=== PATIENT | male | born 1985 | race Two or more races ===

== ENCOUNTER 2016-07-30 16:01 | Inpatient (IN) | payer MEDICAID ==
[~2016-07-30] VITALS: Ht 165.1 cm; Wt 63.5 kg
[2016-07-30] MEDS ORDERED: Morphine Sulfate 4mg/ml Inj IVP ONE ×2 (16:30→19:15)
[2016-07-30 16:35] LABS: MEAN CORPUSCULAR HEMOGLOBIN 30.3 PG (27.0-31.0); MEAN CORPUSCULAR HGB CONC 33.2 G/DL (32.0-36.0); MEAN CORPUSCULAR VOLUME 91 FL (80-99); MEAN PLATELET VOLUME 8.8 FL (6.5-10.1); PLATELET COUNT 251 K/UL (150-450); RED BLOOD COUNT 4.87 M/UL (4.70-6.10); WHITE BLOOD COUNT 20.5 K/UL (4.8-10.8)
[2016-07-30 16:50] LABS: ALANINE AMINOTRANSFERASE 118 U/L (3-41); ALBUMIN/GLOBULIN RATIO 1.3 (1.0-2.7); ANION GAP 17 (5-15); ASPARTATE AMINO TRANSFERASE 57 U/L (5-40); CARBON DIOXIDE 25 mEQ/L (20-30); CHLORIDE 99 mEQ/L (98-107); CREATININE 0.8 mg/dL (0.7-1.2); GLOMERULAR FILTRATION RATE > 60 mL/min (>60); HEMOLYSIS 5; SODIUM 141 mEQ/L (135-145); TOTAL PROTEIN 7.1 g/dL (6.6-8.7)
[2016-07-30 17:44] LABS: LIPASE 4485 U/L (< 60)
[2016-07-30 18:13] VITALS: BP 110/74
[2016-07-30 18:51] LABS: BAND NEUTROPHILS % (MANUAL) 2 % (0-8); BASOPHILS % (MANUAL) 0 % (0-2); EOSINOPHILS % (MANUAL) 0 % (0-3); LYMPHOCYTES % (MANUAL) 8 % (20-45); NEUTROPHILS % (MANUAL) 88 % (45-75); PLATELET ESTIMATE ADEQUATE; PLATELET MORPHOLOGY NORMAL; TOTAL CELLS COUNTED 100
--- NOTE | 2016-07-30 20:12 | Emergency Room Report ---
History of Present Illness General Chief Complaint: Abdominal Pain Source: Patient Present Illness HPI 30-year-old male presents ED for abdominal pain. Pain started today while at work. Pain was sharp. mid-abdomen. 10 out of 10. Nonradiating. Was given morphine by EMS without relief. Notes nausea and vomiting. Denies fevers or chills. Denies chest pain or shortness of breath. No other aggravating or relieving factors. Denies any other associated symptom Allergies: Coded Allergies: No Known Allergies (Unverified , 07/30/16) Patient History Past Medical History: none Past Surgical History: none Pertinent Family History: none Social History: Denies: alcohol use, drug use, smoking Immunizations: UTD Reviewed Nursing Documentation: PMH: Agreed, PSxH: Agreed Nursing Documentation-PMH Past Medical History: No History, Except For Review of Systems All Other Systems: negative except mentioned in HPI Physical Exam Vital Signs Date Time Temp Pulse Resp B/P Pulse Ox O2 Delivery O2 Flow Rate FiO2 07/30/16 15:55 98.1 62 16 117/73 97 Room Air Sp02 EP Interpretation: reviewed, normal General Appearance: mild distress, thin Head: normocephalic Eyes: bilateral eye PERRL, bilateral eye normal inspection ENT: normal ENT inspection Neck: normal inspection Respiratory: chest non-tender, lungs clear, normal breath sounds, speaking full sentences Cardiovascular #1: regular rate, rhythm, no edema Gastrointestinal: normal bowel sounds, soft, guarding, tenderness Rectal: deferred Genitourinary: no CVA tenderness Musculoskeletal: normal inspection Neurologic: alert, oriented x3, responsive, motor strength/tone normal, sensory intact, speech normal Psychiatric: normal inspection Skin: normal inspection Lymphatic: normal inspection Medical Decision Making Diagnostic Impression: Primary Impression: Pancreatitis Qualified Codes: K85.90 - Acute pancreatitis without necrosis or infection, unspecified ER Course Hospital Course 30-year-old male presents to ED with abdominal pain Differential diagnoses include: BPH, cystitis, pyelonephritis, kidney stone Clinical course Patient placed on stretcher. traffic monitor specialist. After initial history and physical I ordered labs, IV fluids, UA, pain medication and CT scan Labs - no leukocytosis, Hb/Hct stable. potassium 3.0 Lipase > 4000, AST/ALT elevated. CT abdomen and pelvis - pancreatitis with peripancreatic fluid Potassium repleted. Case discussed with Dr. Fagan and he agreed to accept the patient to his service for further care and support I feel this is a highly complex case requiring extensive working including EKG/ Rhythm strip, Xray/CT/US, Blood/urine lab work, repeat exams while in ED, and administration of strong opiates/narcotics for pain control, admission to hospital or close patient follow up. Diagnosis - acute pancreatitis Patient admitted to floor in serious condition Labs Test 07/30/16 16:25 White Blood Count 20.5 K/UL (4.8-10.8) Red Blood Count 4.87 M/UL (4.70-6.10) Hemoglobin 14.7 G/DL (14.2-18.0) Hematocrit 44.3 % (42.0-52.0) Mean Corpuscular Volume 91 FL (80-99) Mean Corpuscular Hemoglobin 30.3 PG (27.0-31.0) Mean Corpuscular Hemoglobin Concent 33.2 G/DL (32.0-36.0) Red Cell Distribution Width 13.0 % (11.6-14.8) Platelet Count 251 K/UL (150-450) Mean Platelet Volume 8.8 FL (6.5-10.1) Neutrophils (%) (Auto) % (45.0-75.0) Lymphocytes (%) (Auto) % (20.0-45.0) Monocytes (%) (Auto) % (1.0-10.0) Eosinophils (%) (Auto) % (0.0-3.0) Basophils (%) (Auto) % (0.0-2.0) Differential Total Cells Counted 100 Neutrophils % (Manual) 88 % (45-75) Lymphocytes % (Manual) 8 % (20-45) Monocytes % (Manual) 2 % (1-10) Eosinophils % (Manual) 0 % (0-3) Basophils % (Manual) 0 % (0-2) Band Neutrophils 2 % (0-8) Platelet Estimate Adequate Platelet Morphology Normal Red Blood Cell Morphology Normal Sodium Level 141 mEQ/L (135-145) Potassium Level 3.0 mEQ/L (3.4-4.9) Chloride Level 99 mEQ/L (98-107) Carbon Dioxide Level 25 mEQ/L (20-30) Anion Gap 17 (5-15) Blood Urea Nitrogen 9 mg/dL (7-23) Creatinine 0.8 mg/dL (0.7-1.2) Estimat Glomerular Filtration Rate > 60 mL/min (>60) Glucose Level 137 mg/dL (74-106) Calcium Level 9.0 mg/dL (8.6-10.2) Total Bilirubin 0.8 mg/dL (0.0-1.2) Aspartate Amino Transf (AST/SGOT) 57 U/L (5-40) Alanine Aminotransferase (ALT/SGPT) 118 U/L (3-41) Alkaline Phosphatase 139 U/L (40-129) Total Protein 7.1 g/dL (6.6-8.7) Albumin 4.1 g/dL (3.5-5.2) Globulin 3.0 g/dL Albumin/Globulin Ratio 1.3 (1.0-2.7) Lipase 4485 U/L (< 60) CT/MRI/US Diagnostic Results CT/MRI/US Diagnostic Results : Imaging Test Ordered: CT A/P Impression peripancreatic fluid c/w pancreatitis. Last Vital Signs Date Time Temp Pulse Resp B/P Pulse Ox O2 Delivery O2 Flow Rate FiO2 07/30/16 18:13 94 18 110/74 99 Room Air 07/30/16 17:27 98.1 Status: improved Disposition: ADMITTED INPATIENT Condition: Serious Referrals: NOT CHOSEN ROYER/,REFERRING (PCP) JAS CARRINGTON M.D. Jul 30, 2016 20:12
[2016-07-30] MEDS ORDERED: NKM (20:16)
[2016-07-30 20:17] VITALS: BP 114/72
[2016-07-30] MEDS ORDERED: LORazepam Inj 2mg/ml 1ml IV PRN (20:30)
[2016-07-30] MEDS ORDERED: HYDROmorphone 1mg/ml Carpuject IVP PRN (20:30)
[2016-07-30 21:00] VITALS: BP 118/67
[2016-07-30] MEDS ORDERED: Piperacillin/Tazobactam 3.375 GM in D5W 110 ML IVPB SCH (21:00)
[2016-07-30 21:05] LABS: APPEARANCE,URINE CLEAR; KETONES,URINE NEGATIVE (NEGATIVE); LEUKOCYTE ESTERASE ,URINE NEGATIVE (NEGATIVE); NITRITE,URINE NEGATIVE (NEGATIVE); PH,URINE 5 (4.5-8.0); PROTEIN,URINE NEGATIVE (NEGATIVE); UROBILINOGEN,URINE NORMAL MG/DL (0.0-1.0)
[2016-07-30] MEDS: Piperacillin/Tazobactam 3.375 GM in D5W 110 ML IVPB SCH (22:00)
[2016-07-31] VITALS: BP 126/80
[2016-07-31 04:00] VITALS: BP 129/72
[2016-07-31] MEDS: Piperacillin/Tazobactam 3.375 GM in D5W 110 ML IVPB SCH ×3 (06:25→21:17)
[2016-07-31 08:23] LABS: BASOPHILS % (AUTO) 0.5 % (0.0-2.0); EOSINOPHILS % (AUTO) 0.2 % (0.0-3.0); LYMPHOCYTES % (AUTO) 8.5 % (20.0-45.0); MEAN CORPUSCULAR HEMOGLOBIN 30.3 PG (27.0-31.0); MEAN CORPUSCULAR VOLUME 92 FL (80-99); MEAN PLATELET VOLUME 8.6 FL (6.5-10.1); MONOCYTES % (AUTO) 6.1 % (1.0-10.0); NEUTROPHILS % (AUTO) 84.7 % (45.0-75.0); PLATELET COUNT 279 K/UL (150-450); RED BLOOD COUNT 4.94 M/UL (4.70-6.10); WHITE BLOOD COUNT 12.7 K/UL (4.8-10.8)
[2016-07-31 08:38] LABS: ALANINE AMINOTRANSFERASE 87 U/L (3-41); ALBUMIN/GLOBULIN RATIO 1.4 (1.0-2.7); ANION GAP 12 (5-15); ASPARTATE AMINO TRANSFERASE 28 U/L (5-40); CALCIUM 8.7 mg/dL (8.6-10.2); CARBON DIOXIDE 29 mEQ/L (20-30); CHLORIDE 99 mEQ/L (98-107); CREATININE 0.9 mg/dL (0.7-1.2); GLOMERULAR FILTRATION RATE > 60 mL/min (>60); HEMOLYSIS 9; POTASSIUM 4.2 mEQ/L (3.4-4.9); SODIUM 140 mEQ/L (135-145); TOTAL PROTEIN 6.4 g/dL (6.6-8.7)
[2016-07-31 08:41] VITALS: BP 122/74
--- NOTE | 2016-07-31 08:42 | Diagnostic Imaging Report ---
Clinical Indication: Abdominal pain, Nausea, pancreatitis Technique: Patient given oral contrast immediately prior to scanning. IV administration nonionic contrast. Venous phase spiral acquisition obtained through the abdomen and pelvis. Multiplanar reconstructions were generated. Total dose length product 65 mGycm. CTDIvol(s) 12 mGy. Dose reduction achieved using automated exposure control Comparison: None Findings: The pancreas is diffusely mildly enlarged. It enhances normally, however. There is extensive peripancreatic edema which extends cephalad into the lesser sac, and caudad along the mesenteric root. There is also a small amount of free intraperitoneal fluid around the dome of the liver, in the pelvis, and in the right paracolic gutter.. No discrete loculated fluid collections are demonstrated. No gallstones or biliary ductal dilatation. The pancreatic duct is nondilated. The liver, spleen, adrenals, kidneys are all unremarkable. No pelvic mass or adenopathy. There are equivocally descending colonic diverticula. The appendix is only equivocally demonstrated, there are no findings to suggest acute appendicitis. There are nondilated small bowel loops which nonetheless demonstrate fecalization of the contents indicating stasis. No free intraperitoneal air. There are bilateral scrotal hydroceles. The distal esophagus is unremarkable. The stomach is distended with contrast. The included lung bases demonstrate a calcified granuloma in the posteromedial right lower lobe. Otherwise clear. The bones are unremarkable. Impression: Minimal pancreatic swelling, fairly abundant peripancreatic edema/phlegmon and free intraperitoneal fluid, consistent with acute nonnecrotizing pancreatitis. No evidence of pseudocyst Negative for radiopaque gallstones No evidence of small bowel distention, but there is equalization of small bowel contents which may indicate stasis, nonspecific, possibly ileus secondary to the above Small bilateral scrotal hydroceles incidentally noted Posteromedial right lung calcified granuloma Equivocal small colonic diverticula This agrees with the preliminary interpretation provided overnight by Dr. Taylor The CT scanner at [facility] is accredited by the [employer] and the scans are performed using protocols designed to limit radiation exposure to as low as reasonably achievable to attain images of sufficient resolution adequate for diagnostic evaluation.
[2016-07-31 08:54] LABS: LIPASE 646 U/L (< 60)
[2016-07-31 09:04] LABS: BILIRUBIN,DIRECT 0.3 mg/dL (0.1-0.3)
[2016-07-31] MEDS: Pantoprazole Inj IVP SCH (09:42)
[2016-07-31] MEDS: Heparin 5000 units/ml inj SUBQ SCH ×2 (09:44→21:17)
--- NOTE | 2016-07-31 11:08 | History and Physical Report ---
DATE OF ADMISSION: 07/30/2016 CHIEF COMPLAINT: Pancreatitis. HISTORY OF PRESENT ILLNESS: The patient is a 30-year-old male. He has prior history of pancreatitis. He has had approximately five episodes. He drinks occasionally. There is no history of gall stones. On evaluation in the emergency room, the patient had severe abdominal pain and elevated lipase. A CT scan of the abdomen was otherwise unremarkable. The patient is now admitted. PAST MEDICAL HISTORY: As above. PAST SURGICAL HISTORY: None. CURRENT MEDICATIONS: None. SOCIAL HISTORY: Negative for drugs and smoking. The patient drinks one to two beers a week. FAMILY HISTORY: None. PHYSICAL EXAMINATION: VITAL SIGNS: Temperature 97 degrees, pulse 72, respirations 18, and blood pressure 129/72. GENERAL: The patient is no apparent distress. HEART: Regular. LUNGS: Clear. ABDOMEN: Soft and diffusely tender with some guarding. EXTREMITIES: He has no clubbing or cyanosis. LABORATORY DATA: UA clear. Sodium 141 and potassium 3. AST 57, ALT is 118, and alkaline phosphatase 139. Lipase was 4400. White count 70676. ASSESSMENT: This is a pleasant male admitted with pancreatitis suspect secondary to alcohol use. PLAN: IV pain medications. NPO. IV fluids. Manohar Hoffmann M.D. DR: Elisabet JOB#: [id number] CC:
[2016-07-31 12:32] VITALS: BP 121/78
[2016-07-31] MEDS ORDERED: Metoclopramide 10mg/2ml Inj IVP PRN (14:15)
[2016-07-31 16:35] VITALS: BP 126/63
[2016-07-31 20:00] VITALS: BP 129/77
[2016-08-01] VITALS: BP 120/78
[2016-08-01 04:00] VITALS: BP 113/88
[2016-08-01] MEDS: Piperacillin/Tazobactam 3.375 GM in D5W 110 ML IVPB SCH ×3 (06:07→21:42)
[2016-08-01 07:59] VITALS: BP 129/73
[2016-08-01 08:02] LABS: EOSINOPHILS % (AUTO) 3.2 % (0.0-3.0); LYMPHOCYTES % (AUTO) 9.5 % (20.0-45.0); MEAN CORPUSCULAR HEMOGLOBIN 30.5 PG (27.0-31.0); MEAN CORPUSCULAR HGB CONC 33.1 G/DL (32.0-36.0); MEAN CORPUSCULAR VOLUME 92 FL (80-99); MEAN PLATELET VOLUME 8.3 FL (6.5-10.1); MONOCYTES % (AUTO) 8.3 % (1.0-10.0); PLATELET COUNT 253 K/UL (150-450); RED BLOOD COUNT 4.56 M/UL (4.70-6.10); RED CELL DISTRIBUTION WIDTH 12.8 % (11.6-14.8); WHITE BLOOD COUNT 10.1 K/UL (4.8-10.8)
[2016-08-01] MEDS: Pantoprazole Inj IVP SCH (08:07)
[2016-08-01 08:14] LABS: ALANINE AMINOTRANSFERASE 57 U/L (3-41); ALBUMIN/GLOBULIN RATIO 1.1 (1.0-2.7); ANION GAP 14 (5-15); ASPARTATE AMINO TRANSFERASE 21 U/L (5-40); CALCIUM 8.6 mg/dL (8.6-10.2); CARBON DIOXIDE 27 mEQ/L (20-30); CHLORIDE 99 mEQ/L (98-107); CREATININE 0.9 mg/dL (0.7-1.2); GLOMERULAR FILTRATION RATE > 60 mL/min (>60); HEMOLYSIS 13; LIPASE 171 U/L (< 60); SODIUM 140 mEQ/L (135-145)
[2016-08-01] MEDS: Heparin 5000 units/ml inj SUBQ SCH ×2 (08:14→21:00)
--- NOTE | 2016-08-01 08:32 | General Progress Note ---
Assessment/Plan Problem List: (1) Pancreatitis ICD Codes: K85.90 - Acute pancreatitis without necrosis or infection, unspecified SNOMED: 33162615 Qualifiers: Qualified Codes: K85.90 - Acute pancreatitis without necrosis or infection, unspecified Status: stable Assessment/Plan cont npo ivf pain rx po trial tomorrow Subjective ROS Limited/Unobtainable: No Constitutional: Reports: no symptoms HEENT: Reports: no symptoms Cardiovascular: Reports: no symptoms Respiratory: Reports: no symptoms Gastrointestinal/Abdominal: Reports: abdominal pain Genitourinary: Reports: no symptoms Neurologic/Psychiatric: Reports: no symptoms Endocrine: Reports: no symptoms Hematologic/Lymphatic: Reports: no symptoms Allergies: Coded Allergies: No Known Allergies (Unverified , 07/30/16) All Systems: reviewed and negative except above Subjective decreased abd pain. still npo. labs pending Objective Last 24 Hour Vital Signs Date Time Temp Pulse Resp B/P Pulse Ox O2 Delivery O2 Flow Rate FiO2 08/01/16 07:59 97.7 78 21 129/73 97 Room Air 08/01/16 04:00 97.2 93 20 113/88 93 Room Air 08/01/16 00:00 87 20 120/78 94 Room Air 07/31/16 20:00 99.3 80 18 129/77 95 Room Air 07/31/16 18:56 98.1 07/31/16 16:35 98.1 86 15 126/63 97 Room Air 07/31/16 12:32 97.5 70 16 121/78 97 Room Air 07/31/16 08:41 97.9 74 14 122/74 96 Room Air Intake and Output 07/31/16 08/01/16 19:00 07:00 Intake Total 792.5 ml 600 ml Output Total 1350 ml Balance -557.5 ml 600 ml IV Total 792.5 ml 600 ml Output Urine Total 1350 ml Laboratory Tests 08/01/16 07:30: White Blood Count 10.1, Red Blood Count 4.56L, Hemoglobin 13.9L, Hematocrit 41.9L, Mean Corpuscular Volume 92, Mean Corpuscular Hemoglobin 30.5, Mean Corpuscular Hemoglobin Concent 33.1, Red Cell Distribution Width 12.8, Platelet Count 253, Mean Platelet Volume 8.3, Neutrophils (%) (Auto) 78.0H, Lymphocytes ( %) (Auto) 9.5L, Monocytes (%) (Auto) 8.3, Eosinophils (%) (Auto) 3.2H, Basophils (%) (Auto) 1.0, Sodium Level [Pending], Potassium Level [Pending], Chloride Level [Pending], Carbon Dioxide Level [Pending], Blood Urea Nitrogen [ Pending], Creatinine [Pending], Estimat Glomerular Filtration Rate [Pending], Glucose Level [Pending], Calcium Level [Pending], Total Bilirubin [Pending], Aspartate Amino Transf (AST/SGOT) [Pending], Alanine Aminotransferase (ALT/SGPT ) [Pending], Alkaline Phosphatase [Pending], Total Protein [Pending], Albumin [ Pending], Globulin [Pending], Lipase [Pending] Height (Feet): 5 Height (Inches): 5.00 Weight (Pounds): 140 General Appearance: WD/WN, alert Neck: supple Cardiovascular: normal rate Respiratory/Chest: lungs clear Abdomen: normal bowel sounds, soft, no organomegaly, distended, guarding Edema: no edema noted Arm (L), no edema noted Arm (R), no edema noted Leg (L), no edema noted Leg (R), no edema noted Pedal (L), no edema noted Pedal (R), no edema noted Generalized MARYAM RODRIGUEZ Aug 01, 2016 08:32
[2016-08-01 08:55] LABS: BILIRUBIN,DIRECT 0.2 mg/dL (0.1-0.3)
[2016-08-01 11:51] VITALS: BP 117/73
[2016-08-01 15:42] VITALS: BP 123/74
[2016-08-02] VITALS: BP 115/74
[2016-08-02 04:00] VITALS: BP 123/78
[2016-08-02] MEDS: Piperacillin/Tazobactam 3.375 GM in D5W 110 ML IVPB SCH ×3 (05:14→21:48)
[2016-08-02 07:03] LABS: ALANINE AMINOTRANSFERASE 42 U/L (3-41); ANION GAP 10 (5-15); ASPARTATE AMINO TRANSFERASE 16 U/L (5-40); CALCIUM 8.6 mg/dL (8.6-10.2); CARBON DIOXIDE 29 mEQ/L (20-30); CHLORIDE 101 mEQ/L (98-107); CREATININE 0.9 mg/dL (0.7-1.2); GLOMERULAR FILTRATION RATE > 60 mL/min (>60); HEMOLYSIS 9; LIPASE 129 U/L (< 60); POTASSIUM 3.9 mEQ/L (3.4-4.9); SODIUM 140 mEQ/L (135-145); TOTAL PROTEIN 5.9 g/dL (6.6-8.7)
[2016-08-02 07:25] LABS: BILIRUBIN,DIRECT 0.2 mg/dL (0.1-0.3)
[2016-08-02 08:00] VITALS: BP 122/71
[2016-08-02] MEDS: Pantoprazole Inj IVP SCH (10:30)
[2016-08-02] MEDS: Heparin 5000 units/ml inj SUBQ SCH ×2 (10:42→21:49)
[2016-08-02 12:00] VITALS: BP 125/85
--- NOTE | 2016-08-02 14:00 | General Progress Note ---
Assessment/Plan Problem List: (1) Pancreatitis ICD Codes: K85.90 - Acute pancreatitis without necrosis or infection, unspecified SNOMED: [id number] Qualifiers: Qualified Codes: K85.90 - Acute pancreatitis without necrosis or infection, unspecified Assessment/Plan po trial ivf pain rx dc tomorrow if stable Subjective ROS Limited/Unobtainable: No Constitutional: Reports: malaise, weakness HEENT: Reports: no symptoms Cardiovascular: Reports: no symptoms Respiratory: Reports: no symptoms Gastrointestinal/Abdominal: Reports: abdominal pain Genitourinary: Reports: no symptoms Neurologic/Psychiatric: Reports: no symptoms Endocrine: Reports: no symptoms Hematologic/Lymphatic: Reports: no symptoms Allergies: Coded Allergies: No Known Allergies (Unverified , 07/30/16) All Systems: reviewed and negative except above Subjective decreased abd pain. still npo. labs pending Objective Last 24 Hour Vital Signs Date Time Temp Pulse Resp B/P Pulse Ox O2 Delivery O2 Flow Rate FiO2 08/02/16 08:00 97.4 77 18 122/71 96 Room Air 08/02/16 04:00 98.3 78 19 123/78 95 Room Air 08/02/16 00:00 98.1 77 19 115/74 95 Room Air 08/01/16 15:42 99.7 74 21 123/74 97 Room Air Intake and Output 08/01/16 08/02/16 19:00 07:00 Intake Total 1510 ml 1200 ml Output Total 450 ml Balance 1060 ml 1200 ml IV Total 1510 ml 1200 ml Output Urine Total 450 ml # Voids 2 Laboratory Tests 08/02/16 06:05: Sodium Level 140, Potassium Level 3.9, Chloride Level 101, Carbon Dioxide Level 29, Anion Gap 10, Blood Urea Nitrogen 9, Creatinine 0.9, Estimat Glomerular Filtration Rate > 60, Glucose Level 105, Calcium Level 8.6, Total Bilirubin 1.1 , Direct Bilirubin 0.2, Aspartate Amino Transf (AST/SGOT) 16, Alanine Aminotransferase (ALT/SGPT) 42H, Alkaline Phosphatase 90, Total Protein 5.9L, Albumin 3.0L, Globulin 2.9, Albumin/Globulin Ratio 1.0, Lipase 129H Height (Feet): 5 Height (Inches): 5.00 Weight (Pounds): 140 Objective General Appearance: WD/WN, alert Neck: supple Cardiovascular: normal rate Respiratory/Chest: lungs clear Abdomen: normal bowel sounds, soft, no organomegaly, distended, guarding Edema: no edema noted Arm (L), no edema noted Arm (R), no edema noted Leg (L), no edema noted Leg (R), no edema noted Pedal (L), no edema noted Pedal (R), no edema noted Generalized MARYAM RODRIGUEZ August 02, 2016 14:00
[2016-08-02 16:00] VITALS: BP 121/78
[2016-08-02 20:00] VITALS: BP 121/73
[2016-08-03] VITALS: BP 119/71
[2016-08-03 04:00] VITALS: BP 124/80
[2016-08-03] MEDS: Piperacillin/Tazobactam 3.375 GM in D5W 110 ML IVPB SCH ×2 (05:27→14:00)
[2016-08-03 07:38] VITALS: BP 130/81
[2016-08-03] MEDS: Pantoprazole Inj IVP SCH (08:57)
[2016-08-03] MEDS: Heparin 5000 units/ml inj SUBQ SCH (08:58)
[2016-08-03] MEDS ORDERED: NORCO 10-325 T1 EACH ORAL (11:07)
[2016-08-03 11:27] VITALS: BP 121/69
[2016-08-03] MEDS ORDERED: Milk of Magnesia 30ml Ud ORAL ONE (11:30)
--- NOTE | 2016-08-04 02:08 | Discharge Summary ---
DATE OF ADMISSION: 07/30/2016 DATE OF DISCHARGE: 08/03/2016 ADMISSION DIAGNOSIS: Pancreatitis. DISCHARGE DIAGNOSIS: Pancreatitis. HOSPITAL COURSE: The patient is a pleasant male. He has a history of chronic pancreatitis, presented with complaints of abdominal pain. He does have history of intermittent drinking. He had elevated lipase. He was kept NPO, hydrated. He received IV antibiotics. CT scan showed only some inflammation. The patient was gradually advanced on diet. On discharge, he was pain-free and tolerating p.o. DISCHARGE MEDICATIONS: Please see discharge medication list for discharge medications. DIET: Regular diet. ACTIVITY: Ad-Elaina. FOLLOWUP: The patient was asked to follow up with his regular doctor in one to two days. Manohar Hoffmann M.D. DR: Elisabet JOB#: [id number] CC:
== END 2016-08-03 15:15 | disposition home or self-care (01) | DRG 282 ==
LOC: EDBD 16:01 → EMR 16:38 → EDBEDREQ 18:28 → 4E 18:43 → EDBEDREQ 18:54
DX: K85.90 Acute pancreatitis without necrosis or infection, unspecified (principal)
CPT/HCPCS: 36415; 74177; 80053; 81003; 82248; 83690; 85007; 85025; J2405; J2765

== ENCOUNTER 2016-09-06 06:29 | Inpatient (IN) | payer MEDICAID ==
[~2016-09-06] VITALS: Ht 165.1 cm; Wt 59.9 kg
[~2016-09-06 06:29] MED LIST: NKM; NORCO 10-325 T1 EACH ORAL
[2016-09-06 06:36] VITALS: BP 136/89
[2016-09-06] MEDS ORDERED: Morphine Sulfate 4mg/ml Inj IVP ONE (06:45)
[2016-09-06] MEDS ORDERED: Famotidine 20 MG/ 2ML VIAL IVP ONE (06:45)
[2016-09-06] MEDS ORDERED: Ketorolac 30mg Inj IV ONE (06:45)
[2016-09-06 06:53] LABS: APPEARANCE,URINE CLEAR; KETONES,URINE NEGATIVE (NEGATIVE); LEUKOCYTE ESTERASE ,URINE NEGATIVE (NEGATIVE); NITRITE,URINE NEGATIVE (NEGATIVE); PH,URINE 6 (4.5-8.0); PROTEIN,URINE NEGATIVE (NEGATIVE); UROBILINOGEN,URINE NORMAL MG/DL (0.0-1.0)
[2016-09-06 07:02] LABS: EOSINOPHILS % (AUTO) 3.4 % (0.0-3.0); LYMPHOCYTES % (AUTO) 39.3 % (20.0-45.0); MEAN CORPUSCULAR HEMOGLOBIN 29.9 PG (27.0-31.0); MEAN CORPUSCULAR HGB CONC 34.1 G/DL (32.0-36.0); MEAN CORPUSCULAR VOLUME 88 FL (80-99); MEAN PLATELET VOLUME 8.9 FL (6.5-10.1); MONOCYTES % (AUTO) 6.8 % (1.0-10.0); NEUTROPHILS % (AUTO) 49.5 % (45.0-75.0); PLATELET COUNT 202 K/UL (150-450); RED BLOOD COUNT 4.68 M/UL (4.70-6.10); RED CELL DISTRIBUTION WIDTH 12.2 % (11.6-14.8); WHITE BLOOD COUNT 8.4 K/UL (4.8-10.8)
[2016-09-06 07:05] VITALS: BP 125/80
[2016-09-06] MEDS ORDERED: NKM (07:09)
[2016-09-06 07:10] LABS: BACTERIA,URINE FEW /HPF; SQUAMOUS EPITHELIAL CELL,UR OCCASIONAL /LPF (NONE/OCC); WBC,URINE 0-2 /HPF (0 - 0)
[2016-09-06 07:11] LABS: ALANINE AMINOTRANSFERASE 23 U/L (3-41); ALBUMIN/GLOBULIN RATIO 1.5 (1.0-2.7); ANION GAP 17 (5-15); ASPARTATE AMINO TRANSFERASE 19 U/L (5-40); CARBON DIOXIDE 21 mEQ/L (20-30); CHLORIDE 101 mEQ/L (98-107); CREATININE 0.8 mg/dL (0.7-1.2); GLOMERULAR FILTRATION RATE > 60 mL/min (>60); HEMOLYSIS 16; POTASSIUM 3.7 mEQ/L (3.4-4.9); SODIUM 139 mEQ/L (135-145); TOTAL PROTEIN 6.8 g/dL (6.6-8.7)
[2016-09-06 07:23] LABS: LIPASE 1603 U/L (< 60)
[2016-09-06 07:48] LABS: BILIRUBIN,DIRECT 0.2 mg/dL (0.1-0.3)
[2016-09-06] MEDS ORDERED: HYDROmorphone 1 MG, DiphenhydrAMINE 25 MG in NS 55 ML IVPB ONE (08:15)
[2016-09-06] MEDS ORDERED: HYDROmorphone 1mg/ml Carpuject ONE (08:20)
[2016-09-06] MEDS ORDERED: DiphenhydrAMINE 50mg/ml Inj ONE (08:20)
--- NOTE | 2016-09-06 09:08 | Emergency Room Report ---
History of Present Illness General Chief Complaint: Abdominal Pain Source: Patient, EMS Present Illness HPI 30-year-old male presents ED complaining of abdominal pain and vomiting which started this morning. Pain is epigastric, sharp, 10/10, nonradiating. Notes nausea and vomiting. Denies chest pain shortness of breath. Denies fevers or chills. Prior history of pancreatitis and was recently admitted here. No other aggravating or relieving factors. Denies any other associated symptoms Allergies: Coded Allergies: No Known Allergies (Unverified , 07/30/16) Patient History Past Medical History: other - pancreatitis Past Surgical History: none Pertinent Family History: none Social History: Denies: alcohol use, drug use, smoking Immunizations: UTD Reviewed Nursing Documentation: PMH: Agreed, PSxH: Agreed Nursing Documentation-PMH Hx Gastrointestinal Problems: Yes - PANCREATITIS Review of Systems All Other Systems: negative except mentioned in HPI Physical Exam Vital Signs Date Time Temp Pulse Resp B/P Pulse Ox O2 Delivery O2 Flow Rate FiO2 09/06/16 06:19 97.5 64 16 149/81 100 Room Air Sp02 EP Interpretation: reviewed, normal General Appearance: alert, GCS 15, non-toxic, mild distress, thin Head: normocephalic, atraumatic Eyes: bilateral eye PERRL, bilateral eye normal inspection ENT: hearing grossly normal, normal pharynx, no angioedema, normal voice Neck: full range of motion, supple/symm/no masses Respiratory: chest non-tender, lungs clear, normal breath sounds, speaking full sentences Cardiovascular #1: regular rate, rhythm, no edema Cardiovascular #2: 2+ carotid (R), 2+ carotid (L), 2+ radial (R), 2+ radial (L) , 2+ dorsalis pedis (R), 2+ dorsalis pedis (L) Gastrointestinal: normal bowel sounds, non-distended, no rebound, guarding, tenderness Rectal: deferred Genitourinary: normal inspection, no CVA tenderness Musculoskeletal: back normal, gait/station normal, normal range of motion, non- tender Neurologic: alert, oriented x3, responsive, motor strength/tone normal, sensory intact, speech normal Psychiatric: judgement/insight normal, memory normal, mood/affect normal, no suicidal/homicidal ideation Reflexes: 3+ bicep (R), 3+ bicep (L), 3+ tricep (R), 3+ tricep (L), 3+ knee (R) , 3+ knee (L) Skin: normal color, no rash, warm/dry, well hydrated Lymphatic: no adenopathy Medical Decision Making Diagnostic Impression: Primary Impression: Pancreatitis Qualified Codes: K85.90 - Acute pancreatitis without necrosis or infection, unspecified ER Course Hospital Course 30-year-old male presents to ED with abdominal pain Differential diagnoses include: BPH, cystitis, pyelonephritis, kidney stone Clinical course 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 After initial history and physical I ordered labs, IV fluids, UA, pain medication Labs - no leukocytosis, Hb/Hct stable. electrolytes ok. Lipase > 1000 Patient required multiple rounds of pain medication. Previously admitted here for pancreatitis Case discussed with Dr. Amador and he agreed to accept the patient to his service for further care and support I feel this is a highly complex case requiring extensive working including EKG/ Rhythm strip, Xray/CT/US, Blood/urine lab work, repeat exams while in ED, and administration of strong opiates/narcotics for pain control, admission to hospital or close patient follow up. Diagnosis - acute pancreatitis Patient admitted to floor in serious condition Labs Test 09/06/16 06:30 09/06/16 06:32 White Blood Count 8.4 K/UL (4.8-10.8) Red Blood Count 4.68 M/UL (4.70-6.10) Hemoglobin 14.0 G/DL (14.2-18.0) Hematocrit 41.0 % (42.0-52.0) Mean Corpuscular Volume 88 FL (80-99) Mean Corpuscular Hemoglobin 29.9 PG (27.0-31.0) Mean Corpuscular Hemoglobin Concent 34.1 G/DL (32.0-36.0) Red Cell Distribution Width 12.2 % (11.6-14.8) Platelet Count 202 K/UL (150-450) Mean Platelet Volume 8.9 FL (6.5-10.1) Neutrophils (%) (Auto) 49.5 % (45.0-75.0) Lymphocytes (%) (Auto) 39.3 % (20.0-45.0) Monocytes (%) (Auto) 6.8 % (1.0-10.0) Eosinophils (%) (Auto) 3.4 % (0.0-3.0) Basophils (%) (Auto) 1.0 % (0.0-2.0) Sodium Level 139 mEQ/L (135-145) Potassium Level 3.7 mEQ/L (3.4-4.9) Chloride Level 101 mEQ/L (98-107) Carbon Dioxide Level 21 mEQ/L (20-30) Anion Gap 17 (5-15) Blood Urea Nitrogen 12 mg/dL (7-23) Creatinine 0.8 mg/dL (0.7-1.2) Estimat Glomerular Filtration Rate > 60 mL/min (>60) Glucose Level 115 mg/dL (74-106) Calcium Level 9.0 mg/dL (8.6-10.2) Total Bilirubin 1.4 mg/dL (0.0-1.2) Direct Bilirubin 0.2 mg/dL (0.1-0.3) Aspartate Amino Transf (AST/SGOT) 19 U/L (5-40) Alanine Aminotransferase (ALT/SGPT) 23 U/L (3-41) Alkaline Phosphatase 82 U/L (40-129) Total Protein 6.8 g/dL (6.6-8.7) Albumin 4.1 g/dL (3.5-5.2) Globulin 2.7 g/dL Albumin/Globulin Ratio 1.5 (1.0-2.7) Lipase 1603 U/L (< 60) Urine Color Pale yellow Urine Appearance Clear Urine pH 6 (4.5-8.0) Urine Specific [place] 1.020 (1.005-1.035) Urine Protein Negative (NEGATIVE) Urine Glucose (UA) Negative (NEGATIVE) Urine Ketones Negative (NEGATIVE) Urine Occult Blood 2+ (NEGATIVE) Urine Nitrite Negative (NEGATIVE) Urine Bilirubin Negative (NEGATIVE) Urine Urobilinogen Normal MG/DL (0.0-1.0) Urine Leukocyte Esterase Negative (NEGATIVE) Urine RBC 2-4 /HPF (0 - 0) Urine WBC 0-2 /HPF (0 - 0) Urine Squamous Epithelial Cells Occasional /LPF Urine Bacteria Few /HPF (NONE) Last Vital Signs Date Time Temp Pulse Resp B/P Pulse Ox O2 Delivery O2 Flow Rate FiO2 09/06/16 07:21 97.4 09/06/16 07:05 60 21 125/80 99 Room Air Status: improved Disposition: ADMITTED INPATIENT Condition: Serious Referrals: NOT CHOSEN ROYER/,REFERRING (PCP) JAS CARRINGTON M.D. Sep 06, 2016 09:08
[2016-09-06 09:18] VITALS: BP 109/77
[2016-09-06 10:43] VITALS: BP 140/84
[2016-09-06] MEDS ORDERED: LORazepam 1mg tab ORAL PRN (11:00)
[2016-09-06] MEDS ORDERED: HYDROmorphone 1mg/ml Carpuject IVP PRN (11:00)
[2016-09-06] MEDS ORDERED: Miralax 17gm pkt ORAL PRN (11:00)
[2016-09-06] MEDS: Heparin 5000 units/ml inj SUBQ SCH ×2 (11:28→20:15)
--- NOTE | 2016-09-06 11:50 | GI Initial Consult Note ---
History of Present Illness General Date patient seen: Sep 06, 2016 Time patient seen: 11:46 Reason for Hospitalization: Abdominal Pain Referring physician: BEHZAD CLANCY Reason for Consultation: PANCREATITIS Present Illness HPI 30-year-old male presents ED complaining of abdominal pain and vomiting which started this morning. Pain is epigastric, sharp, 10/10, nonradiating. Notes nausea and vomiting. Denies chest pain shortness of breath. Denies fevers or chills. Prior history of pancreatitis and was recently admitted here. No other aggravating or relieving factors. Denies any other associated symptoms GI CONSULT. HPI as noted above. GI consulted for pancreatitis. Pt seen on floor, awake A&Ox4 NAD c/o of pain 10/10 to epigastric area. Presents today with lipase 1600! Denies ETOH, IVDA, or tobacco use. Denies any use of medication or dietary change. Pt had APCT done on 07/30/16 revealed Minimal pancreatic swelling, fairly abundant peripancreatic edema/phlegmon and free intraperitoneal fluid, consistent with acute nonnecrotizing pancreatitis. Home Meds Active Scripts Hydrocodone Bit/Acetaminophen 10-325* ([place] 10-325*) 1 Each Tablet, 1 TAB ORAL Q4H Y, #30 TAB 0 Refills PRN PAIN Prov:MARYAM RODRIGUEZ 08/03/16 Reported Medications No Known Medications* (NKM - No Known Medications*) ., 0 ., 0 Refills 09/06/16 Med list reviewed/reconciled: Yes Allergies: Coded Allergies: No Known Allergies (Unverified , 07/30/16) Patient History History Provided By: Patient, Medical Record PMH Narrative Past Medical History: other - pancreatitis Past Surgical History: none Pertinent Family History: none Social History: Denies: alcohol use, drug use, smoking Immunizations: UTD Reviewed Nursing Documentation: PMH: Agreed, PSxH: Agreed Nursing Documentation-PMH Hx Gastrointestinal Problems: Yes - PANCREATITIS Social History: Denies: alcohol use, drug use, other, smoking Review of Systems All Other Systems: negative except mentioned in HPI Physical Exam Vital Signs Date Time Temp Pulse Resp B/P Pulse Ox O2 Delivery O2 Flow Rate FiO2 09/06/16 06:19 97.5 64 16 149/81 100 Room Air Sp02 EP Interpretation: reviewed Labs Laboratory Tests Test 09/06/16 06:30 09/06/16 06:32 09/06/16 09:37 White Blood Count 8.4 K/UL (4.8-10.8) Red Blood Count 4.68 M/UL (4.70-6.10) L Hemoglobin 14.0 G/DL (14.2-18.0) L Hematocrit 41.0 % (42.0-52.0) L Mean Corpuscular Volume 88 FL (80-99) Mean Corpuscular Hemoglobin 29.9 PG (27.0-31.0) Mean Corpuscular Hemoglobin Concent 34.1 G/DL (32.0-36.0) Red Cell Distribution Width 12.2 % (11.6-14.8) Platelet Count 202 K/UL (150-450) Mean Platelet Volume 8.9 FL (6.5-10.1) Neutrophils (%) (Auto) 49.5 % (45.0-75.0) Lymphocytes (%) (Auto) 39.3 % (20.0-45.0) Monocytes (%) (Auto) 6.8 % (1.0-10.0) Eosinophils (%) (Auto) 3.4 % (0.0-3.0) H Basophils (%) (Auto) 1.0 % (0.0-2.0) Sodium Level 139 mEQ/L (135-145) Potassium Level 3.7 mEQ/L (3.4-4.9) Chloride Level 101 mEQ/L (98-107) Carbon Dioxide Level 21 mEQ/L (20-30) Anion Gap 17 (5-15) H Blood Urea Nitrogen 12 mg/dL (7-23) Creatinine 0.8 mg/dL (0.7-1.2) Estimat Glomerular Filtration Rate > 60 mL/min (>60) Glucose Level 115 mg/dL (74-106) H Calcium Level 9.0 mg/dL (8.6-10.2) Total Bilirubin 1.4 mg/dL (0.0-1.2) H Direct Bilirubin 0.2 mg/dL (0.1-0.3) Aspartate Amino Transf (AST/SGOT) 19 U/L (5-40) Alanine Aminotransferase (ALT/SGPT) 23 U/L (3-41) Alkaline Phosphatase 82 U/L (40-129) Total Protein 6.8 g/dL (6.6-8.7) Albumin 4.1 g/dL (3.5-5.2) Globulin 2.7 g/dL Albumin/Globulin Ratio 1.5 (1.0-2.7) Lipase 1603 U/L (< 60) H Urine Color Pale yellow Urine Appearance Clear Urine pH 6 (4.5-8.0) Urine Specific [place] 1.020 (1.005-1.035) Urine Protein Negative (NEGATIVE) Urine Glucose (UA) Negative (NEGATIVE) Urine Ketones Negative (NEGATIVE) Urine Occult Blood 2+ (NEGATIVE) H Urine Nitrite Negative (NEGATIVE) Urine Bilirubin Negative (NEGATIVE) Urine Urobilinogen Normal MG/DL (0.0-1.0) Urine Leukocyte Esterase Negative (NEGATIVE) Urine RBC 2-4 /HPF (0 - 0) H Urine WBC 0-2 /HPF (0 - 0) Urine Squamous Epithelial Cells Occasional /LPF Urine Bacteria Few /HPF (NONE) Urine Opiates Screen Positive (NEGATIVE) H Urine Barbiturates Screen Negative (NEGATIVE) Phencyclidine (PCP) Screen Negative (NEGATIVE) Urine Amphetamines Screen Negative (NEGATIVE) Urine Benzodiazepines Screen Negative (NEGATIVE) Urine Cocaine Screen Negative (NEGATIVE) Urine Marijuana (THC) Screen Negative (NEGATIVE) General Appearance: well appearing, no apparent distress, alert Head: normocephalic Neck: supple Respiratory: normal breath sounds, no respiratory distress Cardiovascular: normal rate Gastrointestinal: normal inspection, non tender, soft Rectal: deferred Genitourinary: no CVA tenderness Musculoskeletal: back normal Neurologic: normal inspection, alert, oriented x3, responsive Psychiatric: normal inspection, judgement/insight normal, memory normal Skin: normal inspection, normal color, no rash Lymphatic: normal inspection, no adenopathy Current Medications Current Medications Medications (Trade) Dose Ordered Sig/Mason Route PRN Reason Start Time Stop Time Status Last Admin Dose Admin Acetaminophen (Tylenol) 650 mg Q4H PRN ORAL Mild Pain (Pain Scale 1-3) 09/06/16 11:00 10/06/16 10:59 Acetaminophen (Tylenol) 650 mg Q4H PRN ORAL fever>100.5 09/06/16 11:00 10/06/16 10:59 Bisacodyl (Dulcolax) 10 mg DAILYPRN PRN RECTAL Constipation 09/06/16 11:00 10/06/16 10:59 Docusate Sodium (Colace) 100 mg EVERY 12 HOURS ORAL 09/06/16 21:00 10/06/16 20:59 Heparin Sodium (Porcine) (Heparin 5000 units/ml) 5,000 units EVERY 12 HOURS SUBQ 09/06/16 11:00 10/06/16 10:59 09/06/16 11:28 Hydromorphone HCl (Dilaudid) 1 mg Q6H PRN IVP Moderate Pain (Pain Scale 4-6) 09/06/16 11:00 09/13/16 10:59 Hydromorphone HCl (Dilaudid) 2 mg Q6H PRN IVP Severe Pain (Pain Scale 7-10) 09/06/16 11:00 09/13/16 10:59 09/06/16 11:28 Lorazepam (Ativan) 1 mg Q4H PRN ORAL For Anxiety 09/06/16 11:00 09/13/16 10:59 Ondansetron HCl (Zofran) 4 mg Q6H PRN IVP Nausea & Vomiting 09/06/16 11:00 10/06/16 10:59 Polyethylene Glycol (Miralax) 17 gm DAILY PRN ORAL Constipation 09/06/16 11:00 10/06/16 10:59 Temazepam (Restoril) 15 mg HSPRN PRN ORAL Insomnia 09/06/16 11:00 09/13/16 10:59 UNV Zolpidem Tartrate (Ambien) 5 mg HSPRN PRN ORAL Insomnia 09/06/16 21:00 10/06/16 20:59 GI: Plan Problems: (1) Abdominal distention (2) Pancreatitis Plan APCT reviewed 07/30/16 - acute non necrotizing pancreatitis, will order fu APCT elevated lipase ~ 1600 maintain NPO + IVFs fu APCT electrolyte replacement pain mgmt monitor lipase levels no abx fu labs Discussed with Dr. Parisi. Thank you for referring this patient, we will follow. Maritza Hazel N.P. Sep 06, 2016 11:50
[2016-09-06] MEDS: D5 1/2NS 1,000 ML IV SCH (13:00)
--- NOTE | 2016-09-06 15:27 | History and Physical ---
History of Present Illness General Date patient seen: Sep 06, 2016 Reason for Hospitalization: Abdominal Pain Present Illness HPI 30-year-old male presents ED complaining of abdominal pain and vomiting which started this morning. Pain is epigastric, sharp, 10/10, nonradiating. Notes nausea and vomiting. Denies chest pain shortness of breath. Denies fevers or chills. Prior history of pancreatitis and was recently admitted here. No other aggravating or relieving factors. Denies any other associated symptoms Allergies: Coded Allergies: No Known Allergies (Unverified , 07/30/16) Medication History Scheduled No Known Medications* (NKM - No Known Medications*), 0 ., (Reported) Scheduled PRN Hydrocodone Bit/Acetaminophen 10-325* ([place] 10-325*), 1 TAB ORAL Q4H PRN Patient History Healthcare decision maker Resuscitation status Full Code Advanced Directive on File Past Medical/Surgical History Past Medical/Surgical History: (1) Pancreatitis Review of Systems All Other Systems: negative except mentioned in HPI Physical Exam Lines, tubes and drains: peripheral HEENT: normocephalic Neck: non-tender, normal alignment Respiratory/Chest: chest wall non-tender, lungs clear Abdomen: normal bowel sounds, non tender Genitourinary/Rectal: normal genital exam Extremities: normal range of motion Last 24 Hour Vital Signs Date Time Temp Pulse Resp B/P Pulse Ox O2 Delivery O2 Flow Rate FiO2 09/06/16 11:58 96.6 09/06/16 10:43 96.6 51 18 140/84 100 Room Air 09/06/16 10:20 97.4 53 17 109/77 99 Room Air 09/06/16 09:18 53 17 109/77 99 Room Air 09/06/16 08:51 97.4 09/06/16 07:21 97.4 09/06/16 07:21 97.4 09/06/16 07:05 97.4 60 21 125/80 99 Room Air 09/06/16 06:36 97.5 54 27 136/89 100 Room Air 09/06/16 06:19 97.5 64 16 149/81 100 Room Air Intake and Output 09/05/16 09/06/16 19:00 07:00 # Voids 1 # Bowel Movements 1 Laboratory Tests Test 09/06/16 06:30 09/06/16 06:32 09/06/16 09:37 White Blood Count 8.4 K/UL (4.8-10.8) Red Blood Count 4.68 M/UL (4.70-6.10) L Hemoglobin 14.0 G/DL (14.2-18.0) L Hematocrit 41.0 % (42.0-52.0) L Mean Corpuscular Volume 88 FL (80-99) Mean Corpuscular Hemoglobin 29.9 PG (27.0-31.0) Mean Corpuscular Hemoglobin Concent 34.1 G/DL (32.0-36.0) Red Cell Distribution Width 12.2 % (11.6-14.8) Platelet Count 202 K/UL (150-450) Mean Platelet Volume 8.9 FL (6.5-10.1) Neutrophils (%) (Auto) 49.5 % (45.0-75.0) Lymphocytes (%) (Auto) 39.3 % (20.0-45.0) Monocytes (%) (Auto) 6.8 % (1.0-10.0) Eosinophils (%) (Auto) 3.4 % (0.0-3.0) H Basophils (%) (Auto) 1.0 % (0.0-2.0) Sodium Level 139 mEQ/L (135-145) Potassium Level 3.7 mEQ/L (3.4-4.9) Chloride Level 101 mEQ/L (98-107) Carbon Dioxide Level 21 mEQ/L (20-30) Anion Gap 17 (5-15) H Blood Urea Nitrogen 12 mg/dL (7-23) Creatinine 0.8 mg/dL (0.7-1.2) Estimat Glomerular Filtration Rate > 60 mL/min (>60) Glucose Level 115 mg/dL (74-106) H Calcium Level 9.0 mg/dL (8.6-10.2) Total Bilirubin 1.4 mg/dL (0.0-1.2) H Direct Bilirubin 0.2 mg/dL (0.1-0.3) Aspartate Amino Transf (AST/SGOT) 19 U/L (5-40) Alanine Aminotransferase (ALT/SGPT) 23 U/L (3-41) Alkaline Phosphatase 82 U/L (40-129) Total Protein 6.8 g/dL (6.6-8.7) Albumin 4.1 g/dL (3.5-5.2) Globulin 2.7 g/dL Albumin/Globulin Ratio 1.5 (1.0-2.7) Lipase 1603 U/L (< 60) H Urine Color Pale yellow Urine Appearance Clear Urine pH 6 (4.5-8.0) Urine Specific [place] 1.020 (1.005-1.035) Urine Protein Negative (NEGATIVE) Urine Glucose (UA) Negative (NEGATIVE) Urine Ketones Negative (NEGATIVE) Urine Occult Blood 2+ (NEGATIVE) H Urine Nitrite Negative (NEGATIVE) Urine Bilirubin Negative (NEGATIVE) Urine Urobilinogen Normal MG/DL (0.0-1.0) Urine Leukocyte Esterase Negative (NEGATIVE) Urine RBC 2-4 /HPF (0 - 0) H Urine WBC 0-2 /HPF (0 - 0) Urine Squamous Epithelial Cells Occasional /LPF Urine Bacteria Few /HPF (NONE) Urine Opiates Screen Positive (NEGATIVE) H Urine Barbiturates Screen Negative (NEGATIVE) Phencyclidine (PCP) Screen Negative (NEGATIVE) Urine Amphetamines Screen Negative (NEGATIVE) Urine Benzodiazepines Screen Negative (NEGATIVE) Urine Cocaine Screen Negative (NEGATIVE) Urine Marijuana (THC) Screen Negative (NEGATIVE) Height (Feet): 5 Height (Inches): 5.00 Weight (Pounds): 132 Medications Current Medications Medications (Trade) Dose Ordered Sig/Mason Route PRN Reason Start Time Stop Time Status Last Admin Dose Admin Acetaminophen (Tylenol) 650 mg Q4H PRN ORAL Mild Pain (Pain Scale 1-3) 09/06/16 11:00 10/06/16 10:59 Acetaminophen (Tylenol) 650 mg Q4H PRN ORAL fever>100.5 09/06/16 11:00 10/06/16 10:59 Bisacodyl (Dulcolax) 10 mg DAILYPRN PRN RECTAL Constipation 09/06/16 11:00 10/06/16 10:59 Dextrose/Sodium Chloride (D5 0.45% NS) 1,000 ml @ 75 mls/hr [id number] IV 09/06/16 12:00 10/06/16 11:59 09/06/16 13:00 Docusate Sodium (Colace) 100 mg EVERY 12 HOURS ORAL 09/06/16 21:00 10/06/16 20:59 Heparin Sodium (Porcine) (Heparin 5000 units/ml) 5,000 units EVERY 12 HOURS SUBQ 09/06/16 11:00 10/06/16 10:59 09/06/16 11:28 Hydromorphone HCl (Dilaudid) 1 mg Q6H PRN IVP Moderate Pain (Pain Scale 4-6) 09/06/16 11:00 09/13/16 10:59 09/06/16 14:35 Hydromorphone HCl (Dilaudid) 2 mg Q6H PRN IVP Severe Pain (Pain Scale 7-10) 09/06/16 11:00 09/13/16 10:59 09/06/16 11:28 Lorazepam (Ativan) 1 mg Q4H PRN ORAL For Anxiety 09/06/16 11:00 09/13/16 10:59 Ondansetron HCl (Zofran) 4 mg Q6H PRN IVP Nausea & Vomiting 09/06/16 11:00 10/06/16 10:59 Polyethylene Glycol (Miralax) 17 gm DAILY PRN ORAL Constipation 09/06/16 11:00 10/06/16 10:59 Temazepam 15 mg 15 mg HSPRN PRN ORAL Insomnia 09/06/16 21:00 09/13/16 20:59 Assessment/Plan Problem List: (1) Pancreatitis ICD Codes: K85.90 - Acute pancreatitis without necrosis or infection, unspecified SNOMED: 91216534 Qualifiers: Qualified Codes: K85.90 - Acute pancreatitis without necrosis or infection, unspecified Assessment/Plan npo Iv fluids symptomatic treatment GI f/u BEHZAD DACOSTA Sep 06, 2016 15:27
[2016-09-06 19:51] VITALS: BP 112/65
[2016-09-06] MEDS: Docusate 100mg cap ORAL SCH (20:15)
[2016-09-06] MEDS ORDERED: Zolpidem 5mg tab ORAL PRN (21:00)
[2016-09-06 23:37] VITALS: BP 106/68
[2016-09-07] MEDS: D5 1/2NS 1,000 ML IV SCH ×2 (01:58→15:57)
[2016-09-07 04:00] VITALS: BP 114/71
[2016-09-07 06:33] LABS: ANION GAP 12 (5-15); CALCIUM 8.9 mg/dL (8.6-10.2); CARBON DIOXIDE 27 mEQ/L (20-30); CHLORIDE 99 mEQ/L (98-107); CREATININE 0.7 mg/dL (0.7-1.2); GLOMERULAR FILTRATION RATE > 60 mL/min (>60); HEMOLYSIS 5; POTASSIUM 3.1 mEQ/L (3.4-4.9); SODIUM 138 mEQ/L (135-145)
[2016-09-07 06:36] LABS: BASOPHILS % (AUTO) 0.6 % (0.0-2.0); EOSINOPHILS % (AUTO) 0.5 % (0.0-3.0); LYMPHOCYTES % (AUTO) 12.1 % (20.0-45.0); MEAN CORPUSCULAR HEMOGLOBIN 29.7 PG (27.0-31.0); MEAN CORPUSCULAR HGB CONC 33.6 G/DL (32.0-36.0); MEAN CORPUSCULAR VOLUME 88 FL (80-99); MEAN PLATELET VOLUME 9.7 FL (6.5-10.1); NEUTROPHILS % (AUTO) 78.8 % (45.0-75.0); PLATELET COUNT 193 K/UL (150-450); RED BLOOD COUNT 4.26 M/UL (4.70-6.10); RED CELL DISTRIBUTION WIDTH 12.4 % (11.6-14.8); WHITE BLOOD COUNT 9.8 K/UL (4.8-10.8)
[2016-09-07 07:28] LABS: LIPASE 820 U/L (< 60)
--- NOTE | 2016-09-07 08:33 | Diagnostic Imaging Report ---
Indication: Abdominal pain Technique: Continuous helical transaxial imaging of the abdomen and pelvis was obtained from the lung bases to the pubic symphysis during intravenous contrast administration. Coronal 2-D reformats were also obtained. Study obtained in a Siemens sensation [address] Total Dose length Product (DLP): [address] Dose Index Volume (CTDIvol): 8, 1:30, 13, 15 mGy Comparison: 07/30/16 Findings: There is posterior basilar atelectasis noted. There is fluid surrounding the pancreas extending into the paracolic gutters bilaterally suspicious for acute pancreatitis. The pancreas is mildly enlarged diffusely but enhances homogeneously. There is no hydronephrosis. Gallbladder wall shows thickening. There is a tiny left inguinal hernia containing fat. Appendix is partially identified and appears normal. Solid organs are unremarkable. Impression: Suspected acute pancreatitis. Please correlate clinically. Similar findings noted previously. Posterior basal atelectasis Thickened gallbladder wall nonspecific The CT scanner at [facility] is accredited by the [employer] and the scans are performed using dose optimization techniques as appropriate to a performed exam including Automatic Exposure control.
[2016-09-07 08:49] VITALS: BP 118/63
[2016-09-07] MEDS: Docusate 100mg cap ORAL SCH ×2 (09:22→20:29)
[2016-09-07] MEDS: Heparin 5000 units/ml inj SUBQ SCH ×2 (09:25→20:30)
[2016-09-07] MEDS ORDERED: NS 55ml IV ONE (09:49)
[2016-09-07 11:49] VITALS: BP 104/63
--- NOTE | 2016-09-07 14:12 | GI Progress Note ---
Assessment/Plan Problems: (1) Pancreatitis ICD Codes: K85.90 - Acute pancreatitis without necrosis or infection, unspecified SNOMED: 97802230 Qualifiers: Qualified Codes: K85.90 - Acute pancreatitis without necrosis or infection, unspecified (2) Abdominal distention ICD Codes: R14.0 - Abdominal distension (gaseous) SNOMED: 90734922 Assessment/Plan APCT reviewed >> Suspected acute pancreatitis. elevated lipase CLD, adv as tolerated electrolyte replacement pain mgmt monitor lipase levels no abx fu labs Subjective Gastrointestinal/Abdominal: Reports: abdominal pain - improving Objective Last 24 Hour Vital Signs Date Time Temp Pulse Resp B/P Pulse Ox O2 Delivery O2 Flow Rate FiO2 09/07/16 11:49 97.3 58 19 104/63 98 Room Air 09/07/16 08:49 97.3 62 20 118/63 98 Room Air 09/07/16 04:00 97.9 61 18 114/71 96 Room Air 09/06/16 23:37 97.5 63 18 106/68 98 Room Air 09/06/16 19:51 97.5 64 18 112/65 98 Room Air 09/06/16 19:41 97.5 09/06/16 14:50 96.6 Intake and Output 09/06/16 09/07/16 19:00 07:00 Intake Total 1281.5 ml 300 ml Balance 1281.5 ml 300 ml Intake IV Total 1281.5 ml 300 ml # Voids 2 Laboratory Tests Test 09/07/16 05:05 White Blood Count 9.8 K/UL (4.8-10.8) Red Blood Count 4.26 M/UL (4.70-6.10) L Hemoglobin 12.7 G/DL (14.2-18.0) L Hematocrit 37.7 % (42.0-52.0) L Mean Corpuscular Volume 88 FL (80-99) Mean Corpuscular Hemoglobin 29.7 PG (27.0-31.0) Mean Corpuscular Hemoglobin Concent 33.6 G/DL (32.0-36.0) Red Cell Distribution Width 12.4 % (11.6-14.8) Platelet Count 193 K/UL (150-450) Mean Platelet Volume 9.7 FL (6.5-10.1) Neutrophils (%) (Auto) 78.8 % (45.0-75.0) H Lymphocytes (%) (Auto) 12.1 % (20.0-45.0) L Monocytes (%) (Auto) 8.0 % (1.0-10.0) Eosinophils (%) (Auto) 0.5 % (0.0-3.0) Basophils (%) (Auto) 0.6 % (0.0-2.0) Sodium Level 138 mEQ/L (135-145) Potassium Level 3.1 mEQ/L (3.4-4.9) L Chloride Level 99 mEQ/L (98-107) Carbon Dioxide Level 27 mEQ/L (20-30) Anion Gap 12 (5-15) Blood Urea Nitrogen 7 mg/dL (7-23) Creatinine 0.7 mg/dL (0.7-1.2) Estimat Glomerular Filtration Rate > 60 mL/min (>60) Glucose Level 122 mg/dL (74-106) H Calcium Level 8.9 mg/dL (8.6-10.2) Lipase 820 U/L (< 60) H Height (Feet): 5 Height (Inches): 5.00 Weight (Pounds): 132 General Appearance: no apparent distress, alert Cardiovascular: normal rate Respiratory/Chest: normal breath sounds, no respiratory distress Abdominal Exam: normal bowel sounds, non tender, soft Extremities: normal range of motion Maritza Hazel N.P. Sep 07, 2016 14:12
[2016-09-07] MEDS ORDERED: D5 1/2NS 1000ml IV ONE (15:39)
--- NOTE | 2016-09-07 15:54 | Pulmonology Progress Note ---
Assessment/Plan Problems: (1) Pancreatitis Assessment/Plan iv fluids symptomatic treatment advance diet Subjective ROS Limited/Unobtainable: No Constitutional: Reports: no symptoms HEENT: Repors: no symptoms Allergies: Coded Allergies: No Known Allergies (Unverified , 07/30/16) Objective Last 24 Hour Vital Signs Date Time Temp Pulse Resp B/P Pulse Ox O2 Delivery O2 Flow Rate FiO2 09/07/16 11:49 97.3 58 19 104/63 98 Room Air 09/07/16 08:49 97.3 62 20 118/63 98 Room Air 09/07/16 04:00 97.9 61 18 114/71 96 Room Air 09/06/16 23:37 97.5 63 18 106/68 98 Room Air 09/06/16 19:51 97.5 64 18 112/65 98 Room Air 09/06/16 19:41 97.5 Intake and Output 09/06/16 09/07/16 19:00 07:00 Intake Total 1281.5 ml 300 ml Balance 1281.5 ml 300 ml Intake IV Total 1281.5 ml 300 ml # Voids 2 Objective on clear liquid HEENT: normocephalic Respiratory/Chest: lungs clear Cardiovascular: normal peripheral pulses, normal rate Abdomen: normal bowel sounds, no organomegaly Extremities: no cyanosis Skin: no lesions Laboratory Tests 09/07/16 05:05: White Blood Count 9.8, Red Blood Count 4.26L, Hemoglobin 12.7L, Hematocrit 37.7L , Mean Corpuscular Volume 88, Mean Corpuscular Hemoglobin 29.7, Mean Corpuscular Hemoglobin Concent 33.6, Red Cell Distribution Width 12.4, Platelet Count 193, Mean Platelet Volume 9.7, Neutrophils (%) (Auto) 78.8H, Lymphocytes ( %) (Auto) 12.1L, Monocytes (%) (Auto) 8.0, Eosinophils (%) (Auto) 0.5, Basophils (%) (Auto) 0.6, Sodium Level 138, Potassium Level 3.1L, Chloride Level 99, Carbon Dioxide Level 27, Anion Gap 12, Blood Urea Nitrogen 7, Creatinine 0.7, Estimat Glomerular Filtration Rate > 60, Glucose Level 122H, Calcium Level 8.9, Lipase 820H Current Medications Medications (Trade) Dose Ordered Sig/Mason Route PRN Reason Start Time Stop Time Status Last Admin Dose Admin Acetaminophen (Tylenol) 650 mg Q4H PRN ORAL Mild Pain (Pain Scale 1-3) 09/06/16 11:00 10/06/16 10:59 Acetaminophen (Tylenol) 650 mg Q4H PRN ORAL fever>100.5 09/06/16 11:00 10/06/16 10:59 Bisacodyl (Dulcolax) 10 mg DAILYPRN PRN RECTAL Constipation 09/06/16 11:00 10/06/16 10:59 Dextrose/Sodium Chloride (D5 0.45% NS) 1,000 ml @ 75 mls/hr [id number] IV 09/06/16 12:00 10/06/16 11:59 09/07/16 01:58 Docusate Sodium (Colace) 100 mg EVERY 12 HOURS ORAL 09/06/16 21:00 10/06/16 20:59 09/07/16 09:22 Heparin Sodium (Porcine) (Heparin 5000 units/ml) 5,000 units EVERY 12 HOURS SUBQ 09/06/16 11:00 10/06/16 10:59 09/07/16 09:25 Hydromorphone HCl (Dilaudid) 1 mg Q6H PRN IVP Moderate Pain (Pain Scale 4-6) 09/06/16 11:00 09/13/16 10:59 09/06/16 14:35 Hydromorphone HCl (Dilaudid) 2 mg Q4H PRN IVP Severe Pain (Pain Scale 7-10) 09/06/16 15:30 09/13/16 15:29 09/07/16 09:24 Lorazepam (Ativan) 1 mg Q4H PRN ORAL For Anxiety 09/06/16 11:00 09/13/16 10:59 Ondansetron HCl (Zofran) 4 mg Q6H PRN IVP Nausea & Vomiting 09/06/16 11:00 10/06/16 10:59 09/07/16 05:30 Polyethylene Glycol (Miralax) 17 gm DAILY PRN ORAL Constipation 09/06/16 11:00 10/06/16 10:59 Temazepam 15 mg 15 mg HSPRN PRN ORAL Insomnia 09/06/16 21:00 09/13/16 20:59 BEHZAD DACOSTA Sep 07, 2016 15:54
[2016-09-07 16:04] VITALS: BP 114/75
[2016-09-07 20:00] VITALS: BP 122/71
[2016-09-08] VITALS: BP 113/72
[2016-09-08 04:00] VITALS: BP 118/69
[2016-09-08] MEDS: D5 1/2NS 1,000 ML IV SCH (05:01)
[2016-09-08 07:13] LABS: EOSINOPHILS % (AUTO) 2.7 % (0.0-3.0); LYMPHOCYTES % (AUTO) 23.9 % (20.0-45.0); MEAN CORPUSCULAR HEMOGLOBIN 29.7 PG (27.0-31.0); MEAN CORPUSCULAR HGB CONC 33.5 G/DL (32.0-36.0); MEAN CORPUSCULAR VOLUME 89 FL (80-99); MEAN PLATELET VOLUME 9.3 FL (6.5-10.1); MONOCYTES % (AUTO) 9.3 % (1.0-10.0); NEUTROPHILS % (AUTO) 63.2 % (45.0-75.0); PLATELET COUNT 198 K/UL (150-450); RED BLOOD COUNT 4.21 M/UL (4.70-6.10); RED CELL DISTRIBUTION WIDTH 12.3 % (11.6-14.8); WHITE BLOOD COUNT 5.5 K/UL (4.8-10.8)
[2016-09-08 07:27] LABS: ANION GAP 9 (5-15); CALCIUM 9.4 mg/dL (8.6-10.2); CARBON DIOXIDE 27 mEQ/L (20-30); CHLORIDE 99 mEQ/L (98-107); CREATININE 0.8 mg/dL (0.7-1.2); GLOMERULAR FILTRATION RATE > 60 mL/min (>60); HEMOLYSIS 6; LIPASE 180 U/L (< 60); POTASSIUM 3.3 mEQ/L (3.4-4.9); SODIUM 135 mEQ/L (135-145)
[2016-09-08 07:58] VITALS: BP 118/72
[2016-09-08] MEDS: Docusate 100mg cap ORAL SCH (08:06)
[2016-09-08] MEDS: Heparin 5000 units/ml inj SUBQ SCH (08:08)
--- NOTE | 2016-09-08 11:02 | GI Progress Note ---
Assessment/Plan Problems: (1) Pancreatitis ICD Codes: K85.90 - Acute pancreatitis without necrosis or infection, unspecified SNOMED: 43630071 Qualifiers: Qualified Codes: K85.90 - Acute pancreatitis without necrosis or infection, unspecified (2) Abdominal distention ICD Codes: R14.0 - Abdominal distension (gaseous) SNOMED: 99588609 Status: stable Status Narrative Discussed with Dr. Parisi. Assessment/Plan APCT reviewed >> Suspected acute pancreatitis. elevated lipase ok for DC per GI standpoint low fat diet electrolyte replacement pain mgmt monitor lipase levels no abx fu labs Subjective Gastrointestinal/Abdominal: Reports: abdominal pain - improved, no symptoms Objective Last 24 Hour Vital Signs Date Time Temp Pulse Resp B/P Pulse Ox O2 Delivery O2 Flow Rate FiO2 09/08/16 07:58 98.2 52 18 118/72 97 Room Air 09/08/16 04:00 98.0 60 18 118/69 98 Room Air 09/08/16 00:00 97.8 62 18 113/72 99 Room Air 09/07/16 20:00 97.5 60 18 122/71 100 Room Air 09/07/16 16:04 98.1 63 20 114/75 98 Room Air 09/07/16 11:49 97.3 58 19 104/63 98 Room Air Intake and Output 09/07/16 09/08/16 19:00 07:00 Intake Total 780 ml 960 ml Balance 780 ml 960 ml Intake Oral 480 ml 60 ml IV Total 300 ml 900 ml # Voids 1 3 Laboratory Tests Test 09/08/16 05:45 White Blood Count 5.5 K/UL (4.8-10.8) Red Blood Count 4.21 M/UL (4.70-6.10) L Hemoglobin 12.5 G/DL (14.2-18.0) L Hematocrit 37.4 % (42.0-52.0) L Mean Corpuscular Volume 89 FL (80-99) Mean Corpuscular Hemoglobin 29.7 PG (27.0-31.0) Mean Corpuscular Hemoglobin Concent 33.5 G/DL (32.0-36.0) Red Cell Distribution Width 12.3 % (11.6-14.8) Platelet Count 198 K/UL (150-450) Mean Platelet Volume 9.3 FL (6.5-10.1) Neutrophils (%) (Auto) 63.2 % (45.0-75.0) Lymphocytes (%) (Auto) 23.9 % (20.0-45.0) Monocytes (%) (Auto) 9.3 % (1.0-10.0) Eosinophils (%) (Auto) 2.7 % (0.0-3.0) Basophils (%) (Auto) 1.0 % (0.0-2.0) Sodium Level 135 mEQ/L (135-145) Potassium Level 3.3 mEQ/L (3.4-4.9) L Chloride Level 99 mEQ/L (98-107) Carbon Dioxide Level 27 mEQ/L (20-30) Anion Gap 9 (5-15) Blood Urea Nitrogen 7 mg/dL (7-23) Creatinine 0.8 mg/dL (0.7-1.2) Estimat Glomerular Filtration Rate > 60 mL/min (>60) Glucose Level 104 mg/dL (74-106) Calcium Level 9.4 mg/dL (8.6-10.2) Lipase 180 U/L (< 60) H Height (Feet): 5 Height (Inches): 5.00 Weight (Pounds): 132 General Appearance: no apparent distress, alert Cardiovascular: normal rate Respiratory/Chest: normal breath sounds, no respiratory distress Abdominal Exam: normal bowel sounds, non tender, soft Extremities: normal range of motion Maritza Hazel N.P. Sep 08, 2016 11:02
[2016-09-08 12:00] VITALS: BP 106/67
--- NOTE | 2016-09-08 16:06 | Pulmonology Progress Note ---
Assessment/Plan Problems: (1) Pancreatitis Assessment/Plan improving dc home symptomatic treatment advance diet Subjective ROS Limited/Unobtainable: No Allergies: Coded Allergies: No Known Allergies (Unverified , 07/30/16) Objective Last 24 Hour Vital Signs Date Time Temp Pulse Resp B/P Pulse Ox O2 Delivery O2 Flow Rate FiO2 09/08/16 12:00 98.2 58 20 106/67 98 Room Air 09/08/16 07:58 98.2 52 18 118/72 97 Room Air 09/08/16 04:00 98.0 60 18 118/69 98 Room Air 09/08/16 00:00 97.8 62 18 113/72 99 Room Air 09/07/16 20:00 97.5 60 18 122/71 100 Room Air Intake and Output 09/07/16 09/08/16 19:00 07:00 Intake Total 780 ml 960 ml Balance 780 ml 960 ml Intake Oral 480 ml 60 ml IV Total 300 ml 900 ml # Voids 1 3 Objective getting better Laboratory Tests 09/08/16 05:45: White Blood Count 5.5, Red Blood Count 4.21L, Hemoglobin 12.5L, Hematocrit 37.4L , Mean Corpuscular Volume 89, Mean Corpuscular Hemoglobin 29.7, Mean Corpuscular Hemoglobin Concent 33.5, Red Cell Distribution Width 12.3, Platelet Count 198, Mean Platelet Volume 9.3, Neutrophils (%) (Auto) 63.2, Lymphocytes (% ) (Auto) 23.9, Monocytes (%) (Auto) 9.3, Eosinophils (%) (Auto) 2.7, Basophils ( %) (Auto) 1.0, Sodium Level 135, Potassium Level 3.3L, Chloride Level 99, Carbon Dioxide Level 27, Anion Gap 9, Blood Urea Nitrogen 7, Creatinine 0.8, Estimat Glomerular Filtration Rate > 60, Glucose Level 104, Calcium Level 9.4, Lipase 180H Current Medications Medications (Trade) Dose Ordered Sig/Mason Route PRN Reason Start Time Stop Time Status Last Admin Dose Admin Acetaminophen (Tylenol) 650 mg Q4H PRN ORAL Mild Pain (Pain Scale 1-3) 09/06/16 11:00 10/06/16 10:59 Acetaminophen (Tylenol) 650 mg Q4H PRN ORAL fever>100.5 09/06/16 11:00 10/06/16 10:59 Bisacodyl (Dulcolax) 10 mg DAILYPRN PRN RECTAL Constipation 09/06/16 11:00 10/06/16 10:59 Dextrose/Sodium Chloride (D5 0.45% NS) 1,000 ml @ 75 mls/hr [id number] IV 09/06/16 12:00 10/06/16 11:59 09/08/16 05:01 Docusate Sodium (Colace) 100 mg EVERY 12 HOURS ORAL 09/06/16 21:00 10/06/16 20:59 09/08/16 08:06 Heparin Sodium (Porcine) (Heparin 5000 units/ml) 5,000 units EVERY 12 HOURS SUBQ 09/06/16 11:00 10/06/16 10:59 09/08/16 08:08 Hydromorphone HCl (Dilaudid) 1 mg Q6H PRN IVP Moderate Pain (Pain Scale 4-6) 09/06/16 11:00 09/13/16 10:59 09/06/16 14:35 Hydromorphone HCl (Dilaudid) 2 mg Q4H PRN IVP Severe Pain (Pain Scale 7-10) 09/06/16 15:30 09/13/16 15:29 09/07/16 23:52 Lorazepam (Ativan) 1 mg Q4H PRN ORAL For Anxiety 09/06/16 11:00 09/13/16 10:59 09/08/16 08:06 Ondansetron HCl (Zofran) 4 mg Q6H PRN IVP Nausea & Vomiting 09/06/16 11:00 10/06/16 10:59 09/07/16 17:54 Polyethylene Glycol (Miralax) 17 gm DAILY PRN ORAL Constipation 09/06/16 11:00 10/06/16 10:59 09/08/16 08:06 Temazepam 15 mg 15 mg HSPRN PRN ORAL Insomnia 09/06/16 21:00 09/13/16 20:59 BEHZAD DACOSTA Sep 08, 2016 16:06
--- NOTE | 2016-09-09 13:21 | Discharge Summary ---
Discharge Summary Hospital Course Date of Admission Sep 06, 2016 at 07:39 Date of Discharge Sep 08, 2016 at 16:28 Admitting Diagnosis pancreatitis HPI Ld Barba is a 30 year old male who was admitted on Sep 06, 2016 at 07:39 for Pancreatitis Hospital Course [id number] Discharge Discharge Disposition Patient was discharged to Home (01) Discharge Diagnoses: Yodit Hooper NP Sep 09, 2016 13:21
--- NOTE | 2016-09-10 03:30 | Discharge Summary 2 SIG ---
DATE OF ADMISSION: 09/06/2016 DATE OF DISCHARGE: 09/08/2016 [facility]: Miguel Parisi M.D. BRIEF HOSPITAL COURSE: The patient is a 30-year-old male, who presented to ED complaining of abdominal pain and vomiting, which started in the morning. The pain was described to be located epigastric, sharp, 10/10 and nonradiating. Notes to have nausea and vomiting. He had a prior history of pancreatitis. On evaluation at ED, lipase was elevated to 1, 000. The patient was admitted for further care. He was seen by Dr. Parisi for evaluation of abdominal pain. He was kept on NPO with IV hydration and was given pain management. CT of the abdomen and pelvis confirmed acute pancreatitis. Lipase level downtrended. Diet was eventually advanced, advised low fat diet. He was tolerating diet and was discharged home. Advised to follow up with PMD. FINAL DIAGNOSIS: Acute pancreatitis. Reece Amador M.D. I have been assigned to dictate discharge summary on this account and I was not involved in the patient's management. Yodit Hooper N.P. DR: SUAD JOB#: [id number] CC: RONNY
== END 2016-09-08 16:28 | disposition home or self-care (01) | DRG 282 ==
LOC: EDBD 06:29 → EMR 07:34 → 4E 07:39 → EDBEDREQ 08:11
DX: K85.90 Acute pancreatitis without necrosis or infection, unspecified (principal); R14.0 Abdominal distension (gaseous)
CPT/HCPCS: 36415; 74177; 80048; 80053; 80300; 81003; 82248; 83690; 85025; J2405